=== PATIENT | female | born 1960 | race Caucasian/White ===

== ENCOUNTER 2024-05-18 06:09 | Day surgery (SDC) | payer OTHER ==
[~2024-05-18] VITALS: Ht 152.4 cm; Wt 58.1 kg
[2024-05-18] MEDS ORDERED: SIMETHICONE 40 MG/0.6 ML ML ONE (06:40)
[2024-05-18] MEDS ORDERED: MEPERIDINE 100 MG INJ. 100 MG/ML VIAL ONE (06:41)
[2024-05-18] MEDS ORDERED: MIDAZOLAM HCL 5 MG/5 ML VIAL ONE (06:41)
[2024-05-18 08:55] VITALS: O2SAT 99
[2024-05-18 10:32] VITALS: BP_SYST 85; PULSE 60; RESP 20
== END 2024-05-18 08:42 | disposition home or self-care (01) ==
LOC: SDS 06:09 → SMU 06:16 → SDS 08:42
PROVIDERS: ATTEND Internal Medicine Gastroenterology
DX: Z12.11 Encounter for screening for malignant neoplasm of colon (principal); K64.8 Other hemorrhoids; Z86.010 Personal history of colon polyps; Z98.891 History of uterine scar from previous surgery
CPT/HCPCS: 45378; 99152; G0378; J2250; J2175